=== PATIENT | female | born 1965 | race African-American/Black ===

== ENCOUNTER 2018-02-02 13:15 | Emergency (ER) | payer MEDICAID, OTHER ==
[~2018-02-02] VITALS: Ht 167.6 cm; Wt 74.8 kg
[~2018-02-02 13:15] MED LIST: IBUP-1096 PO
--- NOTE | 2018-02-02 14:20 | NUR ---
PATIENT WAS SEEN BY . JOE COMPLETE. DC AND FOLLOW UP INSTRUCTIONS GIVEN AND EXPLAINED TO PATIENT WHO STATES SHE UNDERSTANDS ALL INSTRUCTIONS.
== END 2018-02-02 14:21 | disposition home or self-care (01) ==
LOC: ER 13:19
DX: M77.9 Enthesopathy, unspecified (principal); J45.909 Unspecified asthma, uncomplicated; Z88.1 Allergy status to other antibiotic agents; Z79.1 Long term (current) use of non-steroidal anti-inflammatories (NSAID)
CPT/HCPCS: 71045; 73110; A4663